=== PATIENT | female | born 1965 | race Hispanic/Latino ===

== ENCOUNTER 2018-11-03 08:36 | Observation (INO) | payer OTHER ==
[~2018-11-03] VITALS: Ht 157.5 cm; Wt 75.8 kg
[2018-11-03] MEDS ORDERED: ONDANSETRON 4 MG TABLET ONE (08:52)
[2018-11-03] MEDS ORDERED: HYDROCODONE/ACETAMINOPHEN 10/325 MG TAB ONE (08:52)
[2018-11-03] MEDS ORDERED: CYCLOBENZAPRINE HCL 10 MG TABLET ONE (08:53)
[2018-11-03] MEDS: SODIUM CHLORIDE 0.9% 1000ML 1,000 ML IV SCH (14:17)
[2018-11-03] MEDS ORDERED: MORPHINE SULFATE 2 MG/ML 1ML SYG ONE ×2 (14:23→18:47)
[2018-11-03] MEDS ORDERED: ACETAMINOPHEN 325 MG TAB PO PRN (14:30)
[2018-11-03] MEDS ORDERED: HYDRALAZINE HCL 20 MG/ML VIAL IV PRN (14:30)
[2018-11-03] MEDS ORDERED: ONDANSETRON HCL 4 MG/2 ML VIAL IV PRN (14:30)
[2018-11-03 14:52] LABS: BASOPHILS % (AUTO) 0.3 % (0.0-5.0); EOSINOPHILS % (AUTO) 0.1 % (0.0-8.0); HEMATOCRIT 40.1 % (36-48); LYMPHOCYTES % (AUTO) 14.8 % (21.0-51.0); MEAN CORPUSCULAR HGB CONC 33.6 g/dL (32.0-36.0); MEAN CORPUSCULAR VOLUME 89.2 fL (79-99); MONOCYTES % (AUTO) 2.7 % (3.0-13.0); NEUTROPHILS % (AUTO) 82.1 % (40.0-77.0); PLATELET COUNT (AUTO) 267 K/uL (130-400); RED CELL DISTRIBUTION WIDTH 13.4 % (11.0-15.5); WHITE BLOOD COUNT (AUTO) 13.6 K/uL (4.8-10.8)
[2018-11-03 14:55] LABS: CREATININE 0.7 mg/dL (0.5-1.5); POTASSIUM 4.3 mmol/L (3.5-5.1)
[2018-11-03 15:01] LABS: ALBUMIN 3.3 g/dL (3.5-5.0); BILIRUBIN,TOTAL 0.3 mg/dL (0.2-1.0); TOTAL PROTEIN, SERUM 7.3 g/dL (6.0-8.3)
[2018-11-03] MEDS ORDERED: SODIUM CHLORIDE 0.9% 1000ML 1,000 ML IV ONE (19:13)
[2018-11-03 22:45] VITALS: BP 142/82
[2018-11-03] MEDS: MORPHINE SULFATE 2 MG/ML 1ML SYG IV PRN (23:23)
[2018-11-03] MEDS ORDERED: AMLO10TA7 PO (23:31)
[2018-11-03] MEDS ORDERED: LORA10TA7 PO (23:31)
[2018-11-03] MEDS ORDERED: CARB15DR OP (23:38)
[2018-11-04] MEDS: SODIUM CHLORIDE 0.9% 1000ML 1,000 ML IV SCH ×3 (00:17→20:07)
--- NOTE | 2018-11-04 00:28 | NUR ---
NOTE PATIENT HAS INQUIRED ABOUT HEADACHE. SAYS SHE MENTIONED IN ED THAT SHE HIT HER HEAD WHEN SHE FELL, BUT NO SCAN HAD BEEN DONE. SHE SAYS SHE HAD NOT EXPERIENCED HEADACHE UP TIL SHE CAME TO HER ROOM IT STARTED TO SET IN. NO OTHER DEFICITS. AND ALSO AN ABDOMINAL BINDER THAT SHE TOLD BY SOMEONE IN ED THAT SHE SHOULD WEAR. NO ORDERS NOTED FOR IT. PAGED [employer]ING MACHINE [employer] EXPLAINED THE INQUIRIES ABOVE AND SAID THAT ABOUT BINDER THAT DOESN'T RECOMMENDED, BUT TO ASK NEUROSURGEON IN AM ABOUT IT. FOR ANY TEST REGARDING HEAD SAID, IF SHE DOES NOT HAVE ANY OTHER DEFICITS SHE WOULD NOT NEED ANY FURTHER SCANS/EXAMS. RECEIVED ORDER FOR FLEXERIL 10MG PO TID PRN TO HELP PATIENT BE MORE COMFORTABLE. UPDATED PATIENT OF NEW ORDERS.
[2018-11-04] MEDS: ACETAMINOPHEN-CODEINE 300/30MG TAB PO PRN ×3 (00:54→23:31)
[2018-11-04] MEDS: CYCLOBENZAPRINE HCL 10 MG TABLET PO PRN ×3 (03:23→23:31)
--- NOTE | 2018-11-04 03:23 | NUR ---
NOTE PATIENT REPORTS MAINLY FEELING THE PAIN HIT HER WHEN SHE GET UP TO THE BATHROOM. HAS A BEDSIDE COMMODE. OFFERED HER THE FLEXIRIL AND ACCEPTED. MEDICATION GIVEN.
[2018-11-04] MEDS: FAMOTIDINE/PF 20 MG/2 ML VIAL IV SCH ×3 (03:25→20:07)
[2018-11-04 04:00] VITALS: BP 106/67
--- NOTE | 2018-11-04 06:00 | NUR ---
NOTE PATIENT SLEPT AFTER FLEXERIL. NOW AWOKE. INQUIRIED TO EFFECT OF MEDICATION AND SHE SAYS SHE THINKS IT HELPED HER SINCE SHE WAS ABLE TO SLEEP AND REST.
[2018-11-04 07:30] VITALS: BP 133/75
--- NOTE | 2018-11-04 07:33 | NUR ---
CONSULT DR. LYN HERE. REPORT GIVEN AND WENT TO SEE/SPEAK TO PATIENT.
[2018-11-04] MEDS: MORPHINE SULFATE 2 MG/ML 1ML SYG IV PRN ×2 (08:40→18:06)
[2018-11-04 11:00] VITALS: BP 121/75
--- NOTE | 2018-11-04 13:00 | NUR ---
INITIAL MET W PATIENT AND FMAILY AT BEDSIDE; PT IS ADMITTED FOR COMPRESSION FRACTURE, S/P FALL, PREVIOUSLY INDP WITH NO DME AND NO MOBILITY DEFICITS. NOW W PAIN ON AMBULATIONS, LIVES W , DRIVES, STAIRS OUTSIDE HOME , NO HAND RAIL, DCP IS HOME, WILL FOLLOW MD RECOMMENDATIONS. Addendum: 11/05/18 at 1651 by TED PATIÑO RN CM Amended: Links added.
[2018-11-04 16:00] VITALS: BP 122/69
[2018-11-04 20:00] VITALS: BP 128/78
[2018-11-05] VITALS: BP 153/89
[2018-11-05 04:00] VITALS: BP 122/74
[2018-11-05] MEDS: SODIUM CHLORIDE 0.9% 1000ML 1,000 ML IV SCH ×2 (05:43→11:04)
[2018-11-05 07:30] VITALS: BP 106/69
[2018-11-05] MEDS: FAMOTIDINE/PF 20 MG/2 ML VIAL IV SCH (08:22)
[2018-11-05] MEDS: CYCLOBENZAPRINE HCL 10 MG TABLET PO PRN ×2 (08:23→14:55)
[2018-11-05] MEDS: MORPHINE SULFATE 2 MG/ML 1ML SYG IV PRN (08:24)
[2018-11-05] MEDS ORDERED: LACTULOSE 20 GM/30 ML UDCUP PO PRN (08:45)
[2018-11-05] MEDS ORDERED: DOCUSATE SODIUM 100 MG CAP PO SCH (09:00)
[2018-11-05] MEDS ORDERED: ENOXAPARIN SODIUM 40 MG/0.4 ML SYRINGE SQ SCH (09:00)
--- NOTE | 2018-11-05 10:00 | NUR ---
DCP HOME, POSSIBLE THIS AFTERNOON ABDIRAHMAN MONITOR FOR RSPONSE TO PTX, DCP IS HOME Addendum: 11/05/18 at 1652 by TED PATIÑO RN CM Amended: Links added.
[2018-11-05] MEDS ORDERED: CYCL10 PO (10:27)
[2018-11-05 11:37] VITALS: BP 129/82
[2018-11-05] MEDS: ACETAMINOPHEN-CODEINE 300/30MG TAB PO PRN (14:55)
[2018-11-05 16:00] VITALS: BP 148/84
== END 2018-11-05 19:00 | disposition home or self-care (01) ==
LOC: EDH 08:36 → EDHIP 13:30 → 4BH 21:26
PROVIDERS: ADMIT Hospitalist; ATTEND Hospitalist
DX: M48.56XA Collapsed vertebra, not elsewhere classified, lumbar region, initial encounter for fracture (principal); I10 Essential (primary) hypertension; W01.0XXA Fall on same level from slipping, tripping and stumbling without subsequent striking against object, initial encounter; Y93.89 Activity, other specified; Y92.009 Unspecified place in unspecified non-institutional (private) residence as the place of occurrence of the external cause; Y99.8 Other external cause status; Z79.899 Other long term (current) drug therapy; Z88.8 Allergy status to other drugs, medicaments and biological substances
CPT/HCPCS: 36415; 72100; 72131; 80053; 85025; 96372; 96374; 96375; 96376 ×2; 97039 ×2; 97116; 97161; 99284; G0378 ×52; G8978; G8979; G8980; G8981; G8982; G8983; J1650; J3490 ×4; J7030; L0625; Q0162